=== PATIENT | female | born 1955 | race African-American/Black ===

== ENCOUNTER 2017-08-23 17:59 | Emergency (ER) | payer MEDICAID, OTHER ==
[~2017-08-23] VITALS: Ht 170.2 cm; Wt 116.0 kg
[2017-08-23] MEDS ORDERED: ACETAMINOPHEN 500MG TABLET PO ONE (18:30)
[2017-08-23] MEDS ORDERED: KETOROLAC 60MG/2ML VIAL IM ONE (21:15)
[2017-08-23 21:30] VITALS: BP 140/82
== END 2017-08-23 21:50 | disposition home or self-care (01) ==
LOC: ER 17:59
DX: M75.52 Bursitis of left shoulder (principal); M06.9 Rheumatoid arthritis, unspecified; I10 Essential (primary) hypertension; Z87.891 Personal history of nicotine dependence
CPT/HCPCS: 73030; 96372; 99284; J1885

== ENCOUNTER 2022-08-20 08:34 | Emergency (ER) | payer OTHER ==
[~2022-08-20] VITALS: Ht 170.2 cm; Wt 100.0 kg
[2022-08-20] MEDS ORDERED: ONDANSETRON HCL 4MG/2ML INJ IV STA (08:42)
[2022-08-20] MEDS ORDERED: MORPHINE SULFATE 4 MG/ML CPJ (NOT FOR IM USE) IV STA (08:42)
[2022-08-20 09:39] LABS: BASOPHILS % 0.8 % (0.0-2.0); EOSINOPHILS % 2.8 % (0.0-5.0); HEMATOCRIT. 39.4 % (36.0-48.0); HEMOGLOBIN. 13.3 g/dL (12.0-16.0); LYMPHOCYTES % 18.6 % (20.0-50.0); MEAN CORPUSCULAR HEMOGLOBIN 30.5 pg (28.0-32.0); MEAN CORPUSCULAR VOLUME 90.5 fL (81.0-99.0); MEAN PLATELET VOLUME 8.4 fl (7.4-10.4); MONOCYTES % 8.4 % (2.0-8.0); NEUTROPHILS % 69.4 % (40.0-76.0); PLATELET 221 x1000/uL (130-400); RED BLOOD CELL COUNT 4.36 mill/uL (4.2-5.4); RED CELL DISTRIBUTION WIDTH 14.3 % (11.6-14.6)
[2022-08-20] MEDS ORDERED: KETOROLAC 30MG/ML VIAL IV ONE (09:45)
[2022-08-20 09:47] LABS: CHLORIDE 108 mEq/L (98-107)
[2022-08-20 09:49] LABS: INR 0.9; PROTHROMBIN TIME 10.2 sec (9.6-11.0)
[2022-08-20] MEDS ORDERED: ASPIRIN 325MG EC TABLET PO ONE (11:15)
[2022-08-20 13:41] VITALS: BP 164/88
== END 2022-08-20 14:44 | disposition short-term general hospital (02) ==
LOC: ER 08:34 → CANBEDREQ 12:14 → ER 14:44
DX: R27.0 Ataxia, unspecified (principal); I10 Essential (primary) hypertension; Z98.890 Other specified postprocedural states
CPT/HCPCS: 36415; 70450; 72125; 80053; 85025; 85610; 96374; 96375; 99285; J1885; J2270; J2405; Z7610